=== PATIENT | female | born 1945 | race Two or more races ===

== ENCOUNTER 2024-08-28 11:08 | Emergency (ER) | payer OTHER, SELFPAY ==
[2024-08-28 11:13] VITALS: BMI 32.9
[2024-08-28 12:06] VITALS: BP 130/74; PULSE 98; RESP 20; TEMP 37.3; O2SAT 99
--- NOTE | 2024-08-28 12:25 | XR_ITS ---
Examination: PA lateral chest 2 views TECHNIQUE: Upright PA lateral chest 2 views Exam date and time: August 28, 2024 1318 hours INDICATIONS: Coughing beginning this week. FINDINGS: Normal heart size Lungs are clear. The osseous structures are intact IMPRESSION: No active disease
--- NOTE | 2024-08-28 12:26 | PD.EDRECHK ---
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 Patient last blood transfusion was a month ago. Patient is on reverse isolation due to leukopenia. She is taking Lupron given by her cancer MD. Patient also complained of nonproductive cough for the last 3 weeks. Seen by PCP recently and was given antibiotic. Still taking antibiotic unrecalled. Patient denies any chest pain denies any abdominal pain denies any other complaints. No medication was taken prior to arrival. Related Data Allergies Allergy/AdvReac Type Severity Reaction Status Date / Time No Known Allergies Allergy Verified 08/28/24 11:11 Review of Systems Review of Systems Narrative Review of Systems: Review of system reviewed and within normal limits except mentioned in HPI ED Exam Narrative Physical exam: VITAL SIGNS: Reviewed. GENERAL APPEARANCE: Alert and interactive, follows commands, no acute distress, HEAD AND FACE: Non-traumatic. ENT: PERRL, pale conjunctiva, eyelid no trauma, Mucous membrane moist. NECK: Supple, nontender, no nuchal rigidity. CHEST: No tenderness, no crepitus, no paradoxical movement, no retractions. LUNGS: Clear, well ventilated, symmetric, no rales, no wheezing, no ronchi, no stridor, good breath sounds bilaterally. HEART: Regular rate, regular rhythm, no murmur, no gallops. ABDOMEN: Soft, positive bowel sounds, nondistended, no guarding, nontender, no rebound, no masses, RECTAL: Deferred. GENITAL: Deferred. NEUROLOGICAL: Gross motor function intact sensory function intact, Appropriate for age. MUSCULOSKELETAL: low back nontender, full range of motion. EXTREMITIES: Nontender, full range of motion. SKIN: Color pale, dry, no rash, no lacerations, no abrasions, no contusions. LYMPHATICS: Deferred. Course Quality Measures none Orders Category Date Time Status Bedside COVID-19 Antigen Test NOW Care 08/28/24 12:25 Completed Bedside Influenza A&B Antigen Test NOW Care 08/28/24 12:25 Completed XR chest 2V Stat Exams 08/28/24 12:25 Completed Antibody Identification Stat Lab 08/28/24 13:30 Completed CBC [CBC] Stat Lab 08/28/24 13:30 Completed CMP [Comprehensive Metabolic Panel] Stat Lab 08/28/24 13:30 Completed RSV [Respiratory Syncytial Virus Ag] Stat Lab 08/28/24 12:30 Completed Type and Screen Stat Lab 08/28/24 13:30 Completed UA, C/S IF [Urinalysis, C/S if Indicated] Stat Lab 08/28/24 13:25 Completed Vital Signs Vital signs: Vital Signs Temperature 99.1 F 08/28/24 12:06 Pulse Rate 98 08/28/24 12:06 Respiratory Rate 20 08/28/24 12:06 Blood Pressure 130/74 08/28/24 12:06 Pulse Oximetry (%) 99 08/28/24 12:06 Oxygen Delivery Method Room Air 08/28/24 12:06 Recheck / Abnormal Lab / Rx MDM Narrative MDM Narrative:: 79-year-old female patient with 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 Patient last blood transfusion was a month ago. Patient is on reverse isolation due to leukopenia. She is taking Lupron given by her cancer MD. Patient also complained of nonproductive cough for the last 3 weeks. Seen by PCP recently and was given antibiotic. Still taking antibiotic unrecalled. Patient denies any chest pain denies any abdominal pain denies any other complaints. No medication was taken prior to arrival. Patient's hemoglobin today was noted to be 9.4, I spoke with patient's oncologist, Dr. Britton who told me that patient can be discharged home without giving blood transfusion and follow-up in the clinic next week plan of care discussed with the patient and family and agrees to be discharged home. Patient appears nontoxic and hemodynamically stable. Patient discharged home and instructed to follow-up with primary care provider in 24 to 48 hours. Instructed to return to the emergency department immediately if worsening of symptoms Patient data External records reviewed:: None Clinical information provided by:: patient Social determinants that could affect healthcare access:: none Patient has the following chronic illnesses:: Preleukemia How is presenting disease/condition affected by chronic disease/condition?: exacerbated by Evaluation data The following diagnostics were reviewed and interpreted by me:: lab results and radiology exam(s) Lab and/or radiology exams considered but not ordered:: None Interpretation Summary: I personally reviewed and interpreted the x-ray of this patient. There is no acute abnormalities found, no infiltrates no pneumothorax no hemothorax normal chest x-ray. Review of other structures was without significant abnormal findings also. I additionally reviewed the radiologist report and agree with the interpretation. Laboratory workup significant for hemoglobin of 9.4 hematocrit of 30.5 platelet 82 CMP unremarkable. Urinalysis no UTI. Medications / Prescriptions Medications or Prescriptions considered but not ordered:: None Medication administrations:: None Consultations Consultation(s) initiated? (list below): No Diagnosis Recheck Differential Diagnosis: other (Anemia, flulike symptoms, pneumonia) Most likely diagnosis given after review of the tests above:: Anemia Admission Indicated Admission indicated?: not indicated Explain why admission is indicated or not indicated:: Stable Admission Request Was there a request for admission?: No Disposition Plan Disposition Plan: Discharge Discharge Attestation Discharge Attestation: The patient and all family members were given an opportunity to ask questions and understood the discharge instructions. Discharge instructions specifically effects, indications for sooner follow up or return to the emergency department, and the expected course of current diagnosis. Patient condition: Stable Discharge Plan Plan Patient Disposition: HOME (Self Care) Disposition Comment: Stable Prescriptions/Referrals Referrals: [facility] [Other] - In 1 week Problem List Clinical Impression: Anemia Patient/Caregiver Discharge Instructions Discharge Activity: activity as tolerated Education Materials: Anemia Additional Instructions: Thank you for the opportunity for serving you today. You are stable for discharged . You are advised to: Follow-up with Dr. Cerrato, next week Return to ED for worsening of symptoms Your hemoglobin today was noted to be 9.4 hematocrit of 30.5 and WBC count of 5.7. Print Language: Senegalese Stand Alone Forms: Bri Award Info., Patient Portal Info Letter
[2024-08-28 13:37] LABS: Collection Type, Urine Clean Catch
[2024-08-28 13:38] LABS: Respiratory Syncytial Virus Ag Negative (Negative)
[2024-08-28 13:43] LABS: Basophils % (Auto) 0 % (0-2.5); Eosinophils % (Auto) 1 % (0-10); Hematocrit 30.5 % (36.0-46.0); Hemoglobin 9.4 g/dL (12.0-16.0); Immature Granulocytes % (Auto) 1 % (0-0); Immature Granulocytes Auto 0.08 Thou/mm3 (0.00-0.00); Lymphocytes # (Auto) 1.2 Thou/mm3 (1.0-4.8); Lymphocytes % (Auto) 20 % (10-50); Mean Corpuscular HGB Conc 30.8 g/dl (31.0-37.0); Mean Corpuscular Volume 78 fL (80-100); Monocytes # (Auto) 0.3 Thou/mm3 (0.0-0.8); Monocytes % (Auto) 5 % (0-12); Neutrophils # (Auto) 4.2 Thou/mm3 (1.8-7.7); Neutrophils % (Auto) 72 % (37-80); Nucleated Red Blood Cell # 0.04 Thou/mm3 (0.00-0.00); Nucleated Red Blood Cell % 1 /100 WBC (0); Platelet Count 82 Thou/mm3 (140-440); RDW Standard Deviation 53.4 fL (36.4-46.3); Red Blood Count 3.91 Miln/mm3 (4.00-5.20); White Blood Count 5.7 Thou/mm3 (3.6-11.0)
[2024-08-28 13:46] LABS: Bilirubin,Urine Negative (Negative); Blood,Urine Trace (Negative); Clarity,Urine Clear (Clear/Hazy); Color,Urine Yellow (Lt Yel-Yel); Culture Indicated,Urine Not Indicated; Glucose, Urine Negative (Negative); Ketones,Urine Negative (Negative); Leukocyte Esterase,Urine Negative (Negative); Nitrite,Urine Negative (Negative); Protein,Urine Trace (Neg - Trace); RBC,Urine 9 /hpf (0-3); Squamous Epithelial Cell,Urine 1 /hpf (0-5); Urobilinogen,Urine Negative mg/dL (0.0-1.0); WBC,Urine 1 /hpf (0-5)
[2024-08-28 14:00] LABS: Alanine Aminotransferase 14 U/L (10-49); Albumin, Serum 5.1 gm/dL (3.4-4.8); Albumin/Globulin Ratio 1.8 (1.2-2.2); Alkaline Phosphatase 92 U/L (46-116); Anion Gap 11 (7-16); Aspartate Amino Transferase 26 U/L (0-34); BUN/Creatinine Ratio 27 Ratio (12-20); Bilirubin,Total 1.1 mg/dL (0.3-1.2); Blood Urea Nitrogen 24 mg/dL (9-23); Calcium 9.7 mg/dL (8.3-10.6); Calcium (Corrected) 9.7 mg/dL (8.5-10.1); Carbon Dioxide 23.9 mMol/L (20.0-31.0); Chloride 102 mMol/L (98-107); Creatinine (Component) 0.9 mg/dL (0.6-1.3); Estimated Creatinine Clearance 48.5 mL/min (>60); Globulin 2.9 gm/dL (2.3-3.5); Glucose 108 mg/dL (74-106); Osmolality,Calculated 278 (275-295); Potassium 4.1 mMol/L (3.4-5.1); Sodium 137 mMol/L (136-145); eGFR > 60 See Note
== END 2024-08-28 15:48 | disposition home or self-care (01) ==
PROVIDERS: Nurse Practitioner Family; Emergency Provider Emergency Medicine
DX: D64.9 Anemia, unspecified (principal); R05.9 Cough, unspecified
CPT/HCPCS: 36415; 71046; 80053; 81001; 85025; 86850; 86870; 86900; 86901; 87400; 87634; 87811; 99283

== ENCOUNTER 2025-06-07 11:48 | Emergency (ER) | payer OTHER, SELFPAY ==
[2025-06-07 12:10] VITALS: BP 152/84; PULSE 94; RESP 16; TEMP 37.2; O2SAT 98; BMI 29.2
--- NOTE | 2025-06-07 12:13 | EKG_ITS ---
[facility] Test Date: 2025-06-07 Pat Name: JOSE PERRY Department: Room: - Gender: Female [employer]: : 1945 Requested By: Nima Rivera Order Number: [id number] Reading MD: Nima Rivera Measurements Intervals [place] Rate: 83 P: 5 NC: 150 QRS: 3 QRSD: 102 T: 41 QT: 366 QTc: 430 Interpretive Statements SINUS RHYTHM MODERATE T-WAVE ABNORMALITY, CONSIDER ANTERIOR ISCHEMIA [-0.1+ mV T-WAVE IN V3/V4] No previous ECG available for comparison /store/S0/[id number].pdf
--- NOTE | 2025-06-07 12:14 | PD.EDRME ---
Rapid Medical Screening Exam RME Arrival date/time: 06/07/25 11:48 79-year-old female with a history of leukemia presents to the emergency room with a chief complaint of weakness, dizziness, and near syncopal episodes x 2 days I have greeted and performed a focused initial assessment of this patient. A comprehensive ED assessment and evaluation of the patient, analysis of all test results, and completion of the medical decision making process will be conducted by additional ED providers. Chief Complaint: General Adult/Misc Complain Time Seen by Provider: 06/07/25 12:09 Vital signs: Vital Signs Temperature 99.0 F 06/07/25 12:10 Pulse Rate 94 06/07/25 12:10 Respiratory Rate 16 06/07/25 12:10 Blood Pressure 152/84 H 06/07/25 12:10 Pulse Oximetry (%) 98 06/07/25 12:10 Oxygen Delivery Method Room Air 06/07/25 12:10 Vital signs reviewed by provider: Yes Exam: Strong and regular rhythm S1 and S2 noted Clear bilateral lung sounds Patient is a GCS of 15 alert and oriented x 3 pupils are PERRLA EOMs are intact Clinical Impression: Anemia/dehydration
[2025-06-07 13:02] LABS: Basophils # (Auto) 0.0 Thou/mm3 (0.0-0.2); Basophils % (Auto) 0 % (0-2.5); Eosinophils # (Auto) 0.0 Thou/mm3 (0.0-0.5); Eosinophils % (Auto) 0 % (0-10); Hematocrit 24.1 % (36.0-46.0); Immature Granulocytes Auto 0.31 Thou/mm3 (0.00-0.00); Lymphocytes # (Auto) 0.4 Thou/mm3 (1.0-4.8); Lymphocytes % (Auto) 28 % (10-50); Mean Corpuscular HGB Conc 34.9 g/dl (31.0-37.0); Mean Corpuscular Hemoglobin 29.4 pg (25.0-35.0); Mean Corpuscular Volume 84 fL (80-100); Monocytes # (Auto) 0.3 Thou/mm3 (0.0-0.8); Monocytes % (Auto) 22 % (0-12); Neutrophils # (Auto) 0.4 Thou/mm3 (1.8-7.7); Neutrophils % (Auto) 28 % (37-80); Nucleated Red Blood Cell # 0.00 Thou/mm3 (0.00-0.00); Nucleated Red Blood Cell % 0 /100 WBC (0); RDW Standard Deviation 42.5 fL (36.4-46.3); Red Blood Count 2.86 Miln/mm3 (4.00-5.20)
[2025-06-07 13:18] LABS: B-Type Natriuretic Peptide 141 pg/mL (0-100)
[2025-06-07 13:20] LABS: Alanine Aminotransferase 15 U/L (10-49); Albumin, Serum 4.3 gm/dL (3.4-4.8); Albumin/Globulin Ratio 1.4 (1.2-2.2); Alkaline Phosphatase 125 U/L (46-116); Anion Gap 12 (7-16); Aspartate Amino Transferase 24 U/L (0-34); BUN/Creatinine Ratio 14 Ratio (12-20); Bilirubin,Total 0.7 mg/dL (0.3-1.2); Blood Urea Nitrogen 11 mg/dL (9-23); Calcium 9.7 mg/dL (8.3-10.6); Calcium (Corrected) 9.7 mg/dL (8.5-10.1); Carbon Dioxide 26.5 mMol/L (20.0-31.0); Chloride 106 mMol/L (98-107); Creatinine (Component) 0.8 mg/dL (0.6-1.3); Estimated Creatinine Clearance 51.4 mL/min (>60); Globulin 3.0 gm/dL (2.3-3.5); Glucose 99 mg/dL (74-106); Magnesium 2.1 mg/dL (1.6-2.6); Osmolality,Calculated 286 (275-295); Potassium 3.2 mMol/L (3.4-5.1); Sodium 144 mMol/L (136-145); Total Protein 7.3 gm/dL (5.7-8.2); Troponin I < 0.020 ng/mL (0.0-0.045); eGFR > 60 See Note
[2025-06-07 13:23] LABS: INR 1.0 (0.9-1.3); Partial Thromboplastin Time 28.8 Seconds (22.0-36.0); Prothrombin Time 11.0 Seconds (9.0-12.2)
[2025-06-07 13:48] LABS: Platelet Count 22 Thou/mm3 (140-440); White Blood Count 1.4 Thou/mm3 (3.6-11.0)
[2025-06-07 13:54] LABS: Path Review Blood Smear Sent to Pathologist; Slide Review Platelets confirmed
[2025-06-07 13:55] LABS: Hemoglobin 8.4 g/dL (12.0-16.0)
[2025-06-07 14:35] VITALS: BP 167/78; PULSE 77; RESP 18; TEMP 37.1; O2SAT 99
--- NOTE | 2025-06-07 15:04 | XR_ITS ---
EXAMINATION: AP chest single view TECHNIQUE: AP portable upright chest single view Date and time: June 07, 2025, 1507 hours INDICATIONS: Shortness of breath today. FINDINGS: Normal heart size Mild vascular congestion. No pneumonia or pulmonary edema IMPRESSION: Mild vascular congestion
--- NOTE | 2025-06-07 15:17 | EDNOTE_ITS ---
<Statement entered by Emily Bailey MD - 06/09/25 16:16> I, Emily Bailey MD, have reviewed the history, exam, and assessment of the patient. I have evaluated the patient independently and agree with the plan of care documented by [ ]. All diagnostic studies were reviewed and discussed. I confirm the diagnosis as documented by the Resident. I was present during the Medical Decision Making for this patient. The patient's plan of care was created between myself and the Resident and consistent with our discussion of the patient's case. ED Weakness RME/HPI General Chief complaint: General Adult/Misc Complain Stated complaint: TIRED, N/V Time Seen by Provider: 06/07/25 12:09 Arrival date/time: 06/07/25 11:48 RME / HPI RME / HPI Narrative: 06/07/25 11:48 Patient is a 79-year-old with a past medical history of acute myeloid leukemia who presented to the emergency room with chief complain of generalized fatigue and feeling unwell since May with previous chemo-therapy on May 05, 2025. Patient is unsure of chemotherapy medication is currently on. Positive for productive cough. Negative pyrexia or chills at home. Denied sick contacts with flu or covid. Denied history of cocci. Denied increased frequency or dysuria. Denied syncope or recent fall. Patient had a recent visit to [facility] where she was tranfused platelets. Recent bone marrow biopsy. Recently treated for COVID 2024. Patient currenlty taking Posaconzale, levofloaxcin, Atovaquone, and acyclovir with allopurinol. Chemo Cytrabine. HEME/ONC Dr. Jacobo azevedo/ [facility] [phone] Impression: Anemia/dehydration Related Data Allergies Allergy/AdvReac Type Severity Reaction Status Date / Time No Known Allergies Allergy Verified 06/07/25 11:51 Review of Systems Review of Systems Narrative Review of Systems: General appearance: NO weight change, NO fatigue, NO weakness, NO fever, NO chills, NO night sweats, Yes cough, Generalized fatigue Skin: NO rash, NO itching, NO sores, NO moles HEENT: NO Trauma, NO nausea, NO vomiting, NO visual changes, NO blurry vision, NO double vision, NO tinnitus, NO vertigo, NO ear discharge, NO rhinorrhea, NO stuffiness, NO sneezing, NO allergy, NO epistaxis. NO Hoarseness, NO sore throat, NO swollen neck. Cardiac: NO Palpitations, NO dyspnea on exertion, NO orthopnea, NO paroxysmal nocturnal dyspnea, NO edema Respiratory: NO Shortness of Breath, NO Wheezing, NO Cough, NO Sputum, NO hemoptysis GI:NO appetite, NO nausea, NO vomiting, NO dysphagia, NO changes in bowel frequency, NO stool color, NO diarrhea, NO constipation, NO hemetemesis, NO hemorrhoids, NO melena, NO hematechezia, NO abdominal pain, NO jaundice Renal: NO frequency, NO hesitancy, NO urgency, NO hematuria, NO nocturia, NO incontinence MSK: NO muscle weakness, NO gout, NO arthritis, NO muscle stiffness Neuro: NO headaches, NO tremors, NO weakness, NO paralysis, NO seizures, NO loss of consciousness, NO numbness. Hem: Acute luekemia, Yes anemia, Yes easy bruising, NO petechiae, NO purpura Endo: NO heat/cold intolerance, NO excessive sweating, NO polyuria, NO polydipsia, NO polyphagia, NO thyroid problems, NO diabetes Pysch: NO mood, NO anxiety, NO depression Course Course Course Narrative: -CBC CMP -COVID, Flu, Cocci -Chest x-ray Quality Measures none (pancytopenia ) Orders Category Date Time Status Bedside COVID-19 Antigen Test NOW Care 06/07/25 15:05 Completed Continuous Pulse Oximetry NOW Care 06/07/25 15:30 Completed EKG (ED ONLY) *Do not use* NOW Care 06/07/25 12:14 Completed Miscellaneous Nursing Order X1 Care 06/07/25 15:43 Completed Vital Signs, Non-Routine Q4H Care 06/07/25 15:30 Ordered EKG (ED Only) Stat Exams 06/07/25 12:13 Draft XR chest 1V portable Urgent Exams 06/07/25 15:04 Completed B-Type Natriuretic Peptide Stat Lab 06/07/25 12:35 Completed Blood Culture (Lab) Stat Lab 06/07/25 15:30 Received CBC Stat Lab 06/07/25 12:35 Completed Cocci Serology IgM with reflex to IgG [Cocci Serology, Lab 06/07/25 15:21 Received Unk History] Stat Comprehensive Metabolic Panel Stat Lab 06/07/25 12:35 Completed FLU A&B [Influenza A & B Rapid Panel] Stat Lab 06/07/25 16:18 Completed Magnesium Stat Lab 06/07/25 12:35 Completed Partial Thromboplastin Time Stat Lab 06/07/25 12:35 Completed Path Review Blood Smear Stat Lab 06/07/25 12:35 Completed Prothrombin Time with INR Stat Lab 06/07/25 12:35 Completed Troponin I Stat Lab 06/07/25 12:35 Completed Type and Screen Stat Lab 06/07/25 12:35 Completed Urinalysis, C/S if Indicated Stat Lab 06/07/25 16:50 Completed POTASSIUM CHL 10% Liq 15 ML Med 06/07/25 15:28 Discontinued 40 meq PO X1 ONE Vital Signs Vital signs: Vital Signs Temperature 99.0 F 06/07/25 12:10 Pulse Rate 94 06/07/25 12:10 Respiratory Rate 16 06/07/25 12:10 Blood Pressure 152/84 H 06/07/25 12:10 Pulse Oximetry (%) 98 06/07/25 12:10 Oxygen Delivery Method Room Air 06/07/25 12:10 Weakness Patient data External records reviewed:: [facility] previous records Clinical information provided by:: patient and family Social determinants that could affect healthcare access:: none Patient has the following chronic illnesses:: Acute Leukemia How is presenting disease/condition affected by chronic disease/condition?: exacerbated by Evaluation data The following diagnostics were reviewed and interpreted by me:: lab results, radiology exam(s) and EKG tracing(s) Lab and/or radiology exams considered but not ordered:: None Interpretation Summary: EKG-sinus Medications / Prescriptions Medications or Prescriptions considered but not ordered:: none Medication administrations:: Medication Administration History Discontinued Medications Potassium Chloride (Potassium Chloride 10% 20 Meq/15 Ml Udc) 40 meq PO X1 ONE Stop: 06/07/25 15:29 Last Admin: 06/07/25 15:44 Dose: 40 meq Documented By: BY same as above Consultations Consultation(s) initiated? 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 Patient had gone through latest chemo session on June 01 2025 with symptoms shortly starting after chemo session. Generalized fatigue likely secondary to anemia and medication side effects. Admission Indicated Admission indicated?: not indicated Explain why admission is indicated or not indicated:: Admission not indicated as their are stable vitals, no pyrexia, no disease process noted on chest x-ray, with negative flu/covid. No concern for sepsis. Admission Request Was there a request for admission?: No Disposition Plan Disposition Plan: Discharge Discharge Attestation Discharge Attestation: The patient and all family members were given an opportunity to ask questions and understood the discharge instructions. Discharge instructions specifically effects, indications for sooner follow up or return to the emergency department, and the expected course of current diagnosis. Patient condition: Stable Discharge Plan Plan Patient Disposition: HOME (Self Care) Patient condition on transfer: Stable Health Concerns: Instructions: -Please continue all medication as prescribed, including your antiviral, antifungal, and antibacterial medication given your history of leukemia. -Please follow up with your heme/onc doctor, Dr. Centeno at [facility]. Please call and update your provider at [phone] -Please follow up with your primary care provider within one week of discharge -If your symptoms worsen,please seek immediate medical attention and return to your nearest emergency room -If you do not have a primary care provider, you may follow up at the [facility] at [address], [place] [address], Prescriptions/Referrals Referrals: No Primary/Family,Physician [Primary Care Provider] - In 1 week Problem List Clinical Impression: History of acute leukemia, History of cancer chemotherapy Patient/Caregiver Discharge Instructions Print Language: Setswana Stand Alone Forms: Bri Award Info., Patient Portal Info Letter
[2025-06-07] MEDS: POTASSIUM CHLORIDE 10% 20 MEQ/15 ML UDC 40 MEQ PO (15:44)
[2025-06-07 16:10] VITALS: BP 170/91; PULSE 82; RESP 18; O2SAT 97
[2025-06-07 16:14] LABS: Band Neutrophils (Manual) 8 % (0-6); Blast Cells (Manual) 7.0; Lymphocytes (Manual) 57 % (20-44); Metamyelocytes (Manual) 5 % (0-0); Monocytes (Manual) 5 % (2-9); Myelocytes (Manual) 2 % (0-0); Neutrophils (Manual) 16 % (50-70)
[2025-06-07 16:16] LABS: Atypical Lymphs 2+
[2025-06-07 16:59] LABS: Influenza A Ag Negative; Influenza B Ag Negative
[2025-06-07 17:03] LABS: Collection Type, Urine Clean Catch
[2025-06-07 17:08] LABS: Bilirubin,Urine Negative (Negative); Blood,Urine 2+ (Negative); Color,Urine Yellow (Lt Yel-Yel); Culture Indicated,Urine Not Indicated; Glucose, Urine Negative (Negative); Ketones,Urine Negative (Negative); Leukocyte Esterase,Urine Negative (Negative); Nitrite,Urine Negative (Negative); PH,Urine 7.0 (5.0-7.0); Protein,Urine 1+ (Neg - Trace); RBC,Urine 39 /hpf (0-3); Specific Gravity,Urine 1.018 (1.001-1.035); Squamous Epithelial Cell,Urine < 1 /hpf (0-5); Urobilinogen,Urine 3.0 mg/dL (0.0-1.0); WBC,Urine 2 /hpf (0-5)
[2025-06-07 17:11] LABS: Clarity,Urine Hazy (Clear/Hazy)
[2025-06-07 17:40] VITALS: BP 136/93; PULSE 82; RESP 18; O2SAT 97
[2025-06-08 12:01] LABS: Cocci Serology, IgM Negative (Negative)
[2025-06-09 10:12] LABS: Cocci Serology, IgG Negative (Negative)
== END 2025-06-07 17:43 | disposition home or self-care (01) ==
PROVIDERS: Nurse Practitioner Family; Emergency Provider Emergency Medicine
DX: E86.0 Dehydration (principal); D64.9 Anemia, unspecified
CPT/HCPCS: 36415; 71045; 80053; 81001; 83735; 83880; 84484; 85025; 85610; 85730; 86331; 86635; 86850; 86900; 86901; 87040; 87502; 87635; 93005; 99283; A9270